=== PATIENT | female | born 1980 | race African-American/Black ===

== ENCOUNTER 2023-01-24 18:05 | Emergency (ER) | payer SELFPAY ==
[2023-01-24 18:17] VITALS: BP 139/77; PULSE 93; RESP 16; TEMP 36.7; O2SAT 100
--- NOTE | 2023-01-24 18:40 | ED.FEMALEGU ---
HPI - Female Genitourinary General Chief complaint: Urogenital-Female Stated complaint: UTI Time Seen by Provider: 01/24/23 18:40 Source: patient and RN notes reviewed Mode of arrival: ambulatory Limitations: no limitations History of Present Illness HPI Narrative: 42-year-old female presents with concern for dysuria, hematuria, frequency, urgency, dull abdominal pain, nausea. She reports symptoms started 4 days ago. She reports she was diagnosed with chlamydia but has not started the antibiotic yet. MD elicited complaint: UTI Related Data Allergies Allergy/AdvReac Type Severity Reaction Status Date / Time latex Allergy Rash Verified 01/24/23 18:15 Review of Systems Review of Systems: CONSTITUTIONAL: Denies malaise, chills, sweats, or fever. CARDIOVASCULAR: Denies chest pain, palpitations, or edema. RESPIRATORY: Denies cough or dyspnea. GASTROINTESTINAL: Denies abdominal pain, vomiting, diarrhea. Reports nausea GENITOURINARY: Reports dysuria, frequency, urgency, suprapubic pressure, hematuria. Denies flank pain SKIN: Denies rash or itching. MUSCULOSKELETAL: Denies back pain or myalgia. All systems reviewed & are unremarkable except as noted in HPI and below PMFSH Comments At time of signature, agree with nursing past medical, surgical, social and family history. There is no relevant family history pertinent to the presenting complaint Exam Narrative: GENERAL: Well-appearing, well-nourished, and in no acute distress. HEAD: Normocephalic. EYES: PERRLA, conjunctivae clear. NECK: Supple. No lymphadenopathy CHEST: Clear to auscultation. No respiratory distress. HEART: Regular rate and rhythm. ABDOMEN: Soft, nontender upon palpation, nondistended, normal active bowel sounds, no palpable or pulsatile masses, no guarding. No CVA tenderness SKIN: Warm, dry, no rash. NEURO: Alert and oriented x3. PSYCH: Normal mood and affect Course Course Emergency Course: Advised patient that her symptoms could be from her chlamydia. Told patient that she needs to take her antibiotic as it was prescribed. Patient is in from out of town, she lives in [place] and her medication for chlamydia is in [place], she is going home in 2 days. She thinks she has urinary tract infection would like to be treated for that. I advised patient I will start antibiotic pending culture. I advised her that her chlamydia is contagious until she has taken her antibiotic. Patient is aware of diagnosis, understands and agrees to treatment plan. Anticipatory guidance given. Patient agrees to follow-up as directed and is aware of reasons to seek care at the emergency department. Portions of this record may have been created with voice recognition software Level of Care: Express Care Visit Vital Signs Vital signs: Vital Signs Temperature 98.1 F 01/24/23 18:17 Pulse Rate 93 01/24/23 18:17 Respiratory Rate 16 01/24/23 18:17 Blood Pressure 139/77 01/24/23 18:17 Pulse Oximetry 100 01/24/23 18:17 Oxygen Delivery Room Air 01/24/23 18:17 Temperature 98.1 F 01/24/23 18:17 Pulse Rate 93 01/24/23 18:17 Respiratory Rate 16 01/24/23 18:17 Blood Pressure 139/77 01/24/23 18:17 Pulse Oximetry 100 01/24/23 18:17 Oxygen Delivery Room Air 01/24/23 18:17 Reviewed. MDM - Female Genitourinary MDM Narrative Medical decision making narrative: Exam findings and UA show no acute concerns or changes; patient is non-toxic appearing and is in no distress. Patient is appropriate for outpatient treatment and follow-up. Differential Diagnosis Differential diagnosis: Likely urinary tract infection and cystitis Lab Data Labs: Urine Glucose Negative Reference Range: Negative Urine Bilirubin Negative Reference Range: Negative Urine Ketone Negative
== END 2023-01-24 19:07 | disposition home or self-care (01) ==
PROVIDERS: Emergency Provider Nurse Practitioner
DX: R30.0 Dysuria (principal); R35.0 Frequency of micturition; R39.15 Urgency of urination
CPT/HCPCS: 81003; 87086; 99203; G0463

== ENCOUNTER 2023-02-11 14:14 | Emergency (ER) | payer MEDICAID, SELFPAY ==
[2023-02-11 14:26] VITALS: BP 124/66; PULSE 78; RESP 16; TEMP 36.6; O2SAT 99
--- NOTE | 2023-02-11 14:29 | ED.FEMALEGU ---
HPI - Female Genitourinary General Chief complaint: Urogenital-Female Stated complaint: UTI Time Seen by Provider: 02/11/23 14:42 Source: patient and RN notes reviewed Mode of arrival: ambulatory Limitations: no limitations History of Present Illness HPI Narrative: 42-year-old female presents with concern for dysuria, lower abdominal pain, urine frequency. She reported she was seen for similar symptoms 1 month ago was treated for possible urinary tract infection. Reports her symptoms improved but did not resolve. On her last visit patient stated that she had a positive chlamydia test and was going to go back home to [place] to take her antibiotic for chlamydia. Patient reports she took the antibiotic for chlamydia. Patient denies fever, aches, chills, sweats, abnormal vaginal discharge, back pain. MD elicited complaint: dysuria Related Data Allergies Allergy/AdvReac Type Severity Reaction Status Date / Time latex Allergy Rash Verified 01/24/23 18:15 Review of Systems Review of Systems: CONSTITUTIONAL: Denies malaise, chills, sweats, or fever. CARDIOVASCULAR: Denies chest pain, palpitations, or edema. RESPIRATORY: Denies cough or dyspnea. GASTROINTESTINAL: Denies abdominal pain, nausea, vomiting, diarrhea GENITOURINARY: Reports dysuria, frequency, suprapubic discomfort. Denies abnormal vaginal discharge, flank pain or hematuria. SKIN: Denies rash or itching. MUSCULOSKELETAL: Denies back pain or myalgia. All systems reviewed & are unremarkable except as noted in HPI and below PMFSH Comments At time of signature, agree with nursing past medical, surgical, social and family history. There is no relevant family history pertinent to the presenting complaint Exam Narrative: GENERAL: Well-appearing, well-nourished, and in no acute distress. HEAD: Normocephalic. EYES: PERRLA, conjunctivae clear. NECK: Supple. No lymphadenopathy CHEST: Clear to auscultation. No respiratory distress. HEART: Regular rate and rhythm. ABDOMEN: Soft, nontender upon palpation, nondistended, normal active bowel sounds, no palpable or pulsatile masses, no guarding. No CVA tenderness SKIN: Warm, dry, no rash. NEURO: Alert and oriented x3. PSYCH: Normal mood and affect Course Course Emergency Course: I discussed patient's urine culture from her visit in January, it was negative. Patient reports she took an antibiotic for chlamydia, however the last antibiotic shown on patient's pharmacy was prescribed in September. I discussed at length urinary tract infection, urinalysis and urine culture. I advised patient that we should recheck her for STDs, treat prophylactically today for possible chlamydia. Patient understands that if any of the other STD tests are positive she may need to return for treatment. Patient is aware of, understands and agrees to treatment plan. Anticipatory guidance given. Patient agrees to follow-up as directed and is aware of reasons to seek care at the emergency department. Portions of this record may have been created with voice recognition software Level of Care: Express Care Visit Vital Signs Vital signs: Reviewed. MDM - Female Genitourinary MDM Narrative Medical decision making narrative: Exam findings and UA show no acute concerns or changes; patient is non-toxic appearing and is in no distress. Patient is appropriate for outpatient treatment and follow-up. Differential Diagnosis Differential diagnosis: Likely urinary tract infection and cystitis Critical Care Time Critical Care Time Critical Care Time: No Discharge Plan Discharge Clinical Impression: Dysuria, Screen for STD (sexually transmitted disease) Patient Disposition: Home, Self-Care Condition: Stable Instructions: Antibiotic Form, Dysuria (ED) Additional Instructions: We will send a urine culture to the lab; if the culture identifies an organism that requires a different antibiotic treatment, you will receive a phone call from an
--- NOTE | 2023-02-16 13:10 | PC.NURSE ---
was called with trich results and requested all std results and aware all not detected.
== END 2023-02-11 14:59 | disposition home or self-care (01) ==
PROVIDERS: Emergency Provider Nurse Practitioner
DX: N39.0 Urinary tract infection, site not specified (principal); B95.1 Streptococcus, group B, as the cause of diseases classified elsewhere; Z11.3 Encounter for screening for infections with a predominantly sexual mode of transmission
CPT/HCPCS: 81003; 87077; 87086; 87088; 87491; 87591; 87661; 99213; G0463